=== PATIENT | female | born 1930 | race Caucasian/White ===

== ENCOUNTER 2016-12-22 09:04 | Emergency (ER) | payer MEDICARE ==
[~2016-12-22] VITALS: Ht 157.5 cm; Wt 41.0 kg
[2016-12-22 09:07] VITALS: BP 184/114; PULSE 84; RESP 14; TEMP 97.8; O2SAT 96
[2016-12-22] MEDS ORDERED: MULTTAB67 PO (09:19)
[2016-12-22 09:36] VITALS: O2SAT 97
[2016-12-22] MEDS ORDERED: cloNIDine HCL 0.1 MG TAB PO ONE (09:45)
[2016-12-22] MEDS ORDERED: SODIUM CHLORIDE 0.9% FLUSH 10 ML FLUSH IVF PRN (09:45)
[2016-12-22 10:26] LABS: BACTERIA, URINE RARE /hpf; BILIRUBIN, URINE NEG (NEG); BLOOD, URINE NEG (NEG); GLUCOSE,URINE NEG (NEG); KETONE, URINE NEG (NEG); MUCUS URINE FEW /lpf (OCC); NITRITE,URINE NEG (NEG); PH, URINE 5.5 (5.0-8.5); URINE COLOR LIGHT-YELLOW (YELLW/STRAW); URINE LEUKOCYTE ESTERASE NEG (NEG)
[2016-12-22 10:27] LABS: AUTOMATED NEUTROPHIL # 2.3 TH/MM3 (1.8-7.7); BASOPHIL % 0.5 % (0.0-2.0); EOSINOPHIL # 0.1 TH/MM3 (0-0.4); EOSINOPHIL % 1.6 % (0.0-4.0); HEMATOCRIT 44.9 % (35.0-46.0); HEMOGLOBIN 15.3 GM/DL (11.6-15.3); LYMPH % 35.3 % (9.0-44.0); LYMPHOCYTE # 1.5 TH/MM3 (1.0-4.8); MEAN CELL VOLUME 94.4 FL (80.0-100.0); MEAN CORPUSCULAR HEMOGLOBIN 32.1 PG (27.0-34.0); MEAN PLATELET VOLUME 7.1 FL (7.0-11.0); MONO % 9.3 % (0.0-8.0); MONOCYTE # 0.4 TH/MM3 (0-0.9); NEUT % 53.3 % (16.0-70.0); PLATELET COUNT 323 TH/MM3 (150-450); RED BLOOD COUNT 4.76 MIL/MM3 (4.00-5.30); WHITE BLOOD COUNT 4.3 TH/MM3 (4.0-11.0)
[2016-12-22 10:30] VITALS: BP 216/86; PULSE 70; RESP 16; O2SAT 96
[2016-12-22 10:46] LABS: BICARBONATE 27.6 MEQ/L (21.0-32.0); CALCIUM 10.5 MG/DL (8.5-10.1); CREATININE 0.76 MG/DL (0.50-1.00)
--- NOTE | 2016-12-22 11:21 | PD ---
HPI Chief Complaint: Dizziness Time Seen by Provider: 09:32 Travel History International Travel<30 days: No Contact w/Intl Traveler<30days: No Traveled to known affect area: No History of Present Illness HPI The patient's 85 years old and arrives with complaint of dizziness. She felt somewhat dizzy yesterday afternoon towards the end of the day. It progressively the dizziness is a sensation of weakness with no vertigo type sensation or near syncope-type sensation. She does note treatment for URI with about 3 weeks of URI type symptoms. Symptoms have been improving. Yesterday she applied a washcloth and some eyes to the back of her neck and reported some improvement. She woke up this morning feeling okay however shortly thereafter again developed weakness. No chest pain shortness of breath. No fever or chills. No similar prior episodes. The patient has observed elevated blood pressure is unusual for her as she has no history of it. No new or different medication. PFSH Past Medical History Cardiovascular Problems: Yes (PNEUMONIA / PLEURISY) Tetanus Vaccination: < 5 Years Influenza Vaccination: No ?: Not Past Surgical History Hysterectomy: Yes Social History Alcohol Use: Yes (occasionally) Tobacco Use: No Substance Use: No Allergies-Medications (Allergen,Severity, Reaction): Coded Allergies: Penicillins (Verified Allergy, Intermediate, RASHES, 12/22/16) Reported Meds & Prescriptions Reported Meds & Active Scripts Active Tessalon Perles (Benzonatate) 100 Mg Cap 100 Mg PO TID PRN Hydrochlorothiazide 25 Mg Tab 25 Mg PO DAILY Reported Multiple Vitamin 1 Tab 1 Tab PO DAILY Review of Systems Except as stated in HPI: all other systems reviewed are Neg General / Constitutional: No: Fever HENT: No: Headaches, Vertigo Cardiovascular: No: Chest Pain or Discomfort Respiratory: No: Cough, Shortness of Breath Physical Exam Narrative GENERAL: Well-nourished well-developed 86-year-old female no acute distress SKIN: Focused skin assessment warm/dry. HEAD: Atraumatic. Normocephalic. EYES: Pupils equal and round. No scleral icterus. No injection or drainage. No nystagmus ENT: No nasal bleeding or discharge. Mucous membranes pink and moist. NECK: Trachea midline. No JVD. CARDIOVASCULAR: Regular rate and rhythm. No murmur appreciated. RESPIRATORY: No accessory muscle use. Clear to auscultation. Breath sounds equal bilaterally. GASTROINTESTINAL: Abdomen soft, non-tender, nondistended. Hepatic and splenic margins not palpable. MUSCULOSKELETAL: No obvious deformities. No clubbing. No cyanosis. No edema. NEUROLOGICAL: Awake and alert. No obvious cranial nerve deficits. Motor grossly within normal limits. Normal speech. PSYCHIATRIC: Appropriate mood and affect; insight and judgment normal. Data Data Last Documented VS Vital Signs Date Time Temp Pulse Resp B/P (MAP) Pulse Ox O2 Delivery O2 Flow Rate FiO2 12/22/16 12:03 12/22/16 11:50 66 14 97 12/22/16 09:36 Room Air 12/22/16 09:07 97.8 Orders Orders Electrocardiogram (12/22/16 09:32) Basic Metabolic Panel (Bmp) (12/22/16 09:32) Complete Blood Count With Diff (12/22/16 09:32) Urinalysis - C+S If Indicated (12/22/16 09:32) Ecg Monitoring (12/22/16 09:32) Iv Access Insert/Monitor (12/22/16 09:32) Oximetry (12/22/16 09:32) Sodium Chloride 0.9% Flush (Ns Flush) (12/22/16 09:45) Clonidine (Catapres) (12/22/16 09:45) Ed Discharge Order (12/22/16 11:21) Labs Laboratory Tests Test 12/22/16 09:40 12/22/16 09:45 White Blood Count 4.3 TH/MM3 Red Blood Count 4.76 MIL/MM3 Hemoglobin 15.3 GM/DL Hematocrit 44.9 % Mean Corpuscular Volume 94.4 FL Mean Corpuscular Hemoglobin 32.1 PG Mean Corpuscular Hemoglobin Concent 34.0 % Red Cell Distribution Width 13.0 % Platelet Count 323 TH/MM3 Mean Platelet Volume 7.1 FL Neutrophils (%) (Auto) 53.3 % Lymphocytes (%) (Auto) 35.3 % Monocytes (%) (Auto) 9.3 % Eosinophils (%) (Auto) 1.6 % Basophils (%) (Auto) 0.5 % Neutrophils # (Auto) 2.3 TH/MM3 Lymphocytes # (Auto) 1.5 TH/MM3 Monocytes # (Auto) 0.4 TH/MM3 Eosinophils # (Auto) 0.1 TH/MM3 Basophils # (Auto) 0.0 TH/MM3 CBC Comment DIFF FINAL Differential Comment Blood Urea Nitrogen 10 MG/DL Creatinine 0.76 MG/DL Random Glucose 124 MG/DL Calcium Level 10.5 MG/DL Sodium Level 133 MEQ/L Potassium Level 3.6 MEQ/L Chloride Level 97 MEQ/L Carbon Dioxide Level 27.6 MEQ/L Anion Gap 8 MEQ/L Estimat Glomerular Filtration Rate 72 ML/MIN Urine Color LIGHT-YELLOW Urine Turbidity CLEAR Urine pH 5.5 Urine Specific [place] 1.005 Urine Protein NEG mg/dL Urine Glucose (UA) NEG mg/dL Urine Ketones NEG mg/dL Urine Occult Blood NEG Urine Nitrite NEG Urine Bilirubin NEG Urine Urobilinogen LESS THAN 2.0 MG/DL Urine Leukocyte Esterase NEG Urine RBC LESS THAN 1 /hpf Urine WBC LESS THAN 1 /hpf Urine Bacteria RARE /hpf Urine Mucus FEW /lpf Microscopic Urinalysis Comment CULT NOT INDICATED MDM Medical Decision Making Medical Screen Exam Complete: Yes Emergency Medical Condition: Yes Medical Record Reviewed: No Differential Diagnosis Vertigo, lightheadedness, syncope, anemia, UTI, polypharmacy, renal injury/chest /dehydration, anxiety Narrative Course CBC & BMP Diagram 12/22/16 09:40 Calcium Level 10.5 H Urinalysis shows no UTI EKG: sinus, rate 78, RBBB w LVH The patient is resting comfortably and feels better, is alert and in no distress. The patients results and examination findings were discussed. The repeat examination is unremarkable and benign. The history, exam, diagnostic testing, and current condition do not suggest any significant pathology to warrant further testing, continued ED treatment, admission, or surgical evaluation at this point. The vital signs have been stable. The patient does not have uncontrollable pain, intractable vomiting, or other significant symptoms. The patient's condition is stable and appropriate for discharge. The patient will pursue further outpatient evaluation with a primary care physician or other designated or consulting physician as indicated in the discharge instructions. The patient expressed understanding and was agreeable with this plan. Diagnosis Primary Impression: Dizziness Additional Impression: Hypertension Qualified Codes: I10 - Essential (primary) hypertension Referrals: Primary Care Physician 2 days Additional Instructions: You have a choice when it comes to health care, and we are glad that you chose [facility]. Hopefully, we have met your expectations on today's visit. You are welcome to return to [facility] at any time, as we are committed to meeting the health care needs of our community. Med/Other Pt SpecificInfo: No Change to Meds Scripts Benzonatate (Tessalon Perles) 100 Mg Cap 100 MG PO TID Y for COUGH, #10 CAP 0 Refills Prov: Franklin Werner MD 12/22/16 Hydrochlorothiazide (Hydrochlorothiazide) 25 Mg Tab 25 MG PO DAILY, #30 TAB 0 Refills Prov: Franklin Werner MD 12/22/16 Disposition: 01 DISCHARGE HOME Condition: Stable Franklin Werner MD Dec 22, 2016 11:21
[2016-12-22] MEDS ORDERED: HYDR25TA5 PO (11:31)
[2016-12-22] MEDS ORDERED: BENZ100 PO (11:31)
[2016-12-22 11:50] VITALS: BP 151/68; PULSE 66; RESP 14; O2SAT 97
--- NOTE | 2016-12-22 17:58 | EKG ---
Date Performed: 12/22/2016 Time Performed: 09:42:01 PTAGE: 86 years EKG: Sinus rhythm WITH OCCASIONAL ECTOPIC PREMATURE COMPLEXES RIGHT BUNDLE BRANCH BLOCK LEFT VENTRICULAR HYPERTROPHY A ND ST-T CHANGE ABNORMAL ECG NO PREVIOUS TRACING DOCTOR: Kumar Melgoza Interpretating Date/Time 12/22/2016 17:58:03
== END 2016-12-22 12:08 | disposition home or self-care (01) ==
LOC: NEPC 09:04
DX: R42 Dizziness and giddiness (principal); I10 Essential (primary) hypertension
CPT/HCPCS: 80048; 81001; 85025; 93005; 99284

== ENCOUNTER 2017-01-26 16:12 | Emergency (ER) | payer MEDICARE ==
[~2017-01-26] VITALS: Ht 157.5 cm; Wt 38.0 kg
[~2017-01-26 16:12] MED LIST: BENZ100 PO; CETI10 PO; FLUT1SPR5 EACH NARE; LISI10TA PO; MULTTAB67 PO
[2017-01-26 16:16] VITALS: BP 218/94; PULSE 84; RESP 16; TEMP 98.5; O2SAT 98
--- NOTE | 2017-01-26 17:10 | RADRPT ---
EXAM DATE/TIME: 01/26/2017 16:49 [facility] COMPARISON: No previous studies available for comparison. INDICATIONS : Hypertension, chest pain for 2 months. MEDICAL HISTORY : Hypertension. SURGICAL HISTORY : None. ENCOUNTER: Initial ACUITY: 2 months PAIN SCORE: 0/10 LOCATION: Bilateral chest FINDINGS: Marked hyperinflation without infiltrate. Moderate peribronchial thickening. The cardiomediastinal contours are unremarkable. Osseous structures are intact. CONCLUSION: Marked hyperinflation with mild peribronchial thickening Jacob Mcmahon MD FACR on January 26, 2017 at 17:08 Board Certified Radiologist. This report was verified electronically.
[2017-01-26 17:37] LABS: AUTOMATED NEUTROPHIL # 8.1 TH/MM3 (1.8-7.7); BASOPHIL % 0.1 % (0.0-2.0); EOSINOPHIL % 0.1 % (0.0-4.0); HEMATOCRIT 40.1 % (35.0-46.0); HEMO FLAGS DIFF FINAL; LYMPH % 10.1 % (9.0-44.0); MEAN CELL VOLUME 94.7 FL (80.0-100.0); MEAN CORPUSCULAR HEMOGLOBIN 33.3 PG (27.0-34.0); MEAN CORPUSCULAR HGB CONC 35.2 % (32.0-36.0); MONO % 5.8 % (0.0-8.0); NEUT % 83.9 % (16.0-70.0); PLATELET COUNT 322 TH/MM3 (150-450); RED BLOOD COUNT 4.24 MIL/MM3 (4.00-5.30); RED CELL DISTRIBUTION WIDTH 12.2 % (11.6-17.2); WHITE BLOOD COUNT 9.7 TH/MM3 (4.0-11.0)
[2017-01-26 17:45] LABS: APTT (PATIENT) 29.6 SEC (24.3-30.1); INTERNATIONAL NORMALIZED RATIO 0.9 RATIO
[2017-01-26 17:55] VITALS: BP 209/92; PULSE 88; RESP 20; O2SAT 97
[2017-01-26 18:00] LABS: ANION GAP 7 MEQ/L (5-15); BICARBONATE 26.6 MEQ/L (21.0-32.0); BLOOD UREA NITROGEN 8 MG/DL (7-18); CHLORIDE 93 MEQ/L (98-107); GLOMERULAR FILTRATION RATE 77 ML/MIN (>89); POTASSIUM 4.4 MEQ/L (3.5-5.1); SODIUM (NA) 127 MEQ/L (136-145)
[2017-01-26] MEDS ORDERED: LISINOPRIL 20 MG TAB PO ONE (18:00)
--- NOTE | 2017-01-26 18:02 | PD ---
HPI Chief Complaint: General Weakness Time Seen by Provider: 17:53 Travel History International Travel<30 days: No Contact w/Intl Traveler<30days: No Traveled to known affect area: No History of Present Illness HPI 86-year-old female patient with history of hypertension, presents to the ER today because she states that over last few weeks she has been feeling woozy, feeling off balance at times, and her blood pressures up and elevated. She denies any chest pains, trouble breathing, numbness or weakness. She states that she has been on lisinopril given to her by primary care doctor for 3 weeks. In addition, she states that she has lost sinus congestion and has been coughing and coughing up thick phlegm. However, she denies any fevers, vomiting , or other symptoms. Modifying Factors: None Associated Signs & Symptoms: Dizziness, elevated blood pressures, coughing Risk Factors: History of hypertension PFSH Past Medical History Cardiovascular Problems: Yes (HTN) Hypertension: Yes ?: Not Past Surgical History Eye Surgery: Yes (glaucoma) Hysterectomy: Yes Social History Alcohol Use: Yes (occasionally) Tobacco Use: No Substance Use: No Allergies-Medications (Allergen,Severity, Reaction): Coded Allergies: Penicillins (Verified Allergy, Intermediate, RASHES, 01/26/17) Reported Meds & Prescriptions Reported Meds & Active Scripts Active Flonase Nasal [place] (Fluticasone Nasal [place]) 50 Mcg/Act [place] 2 [place] EACH NARE BID Cetirizine (Cetirizine HCl) 10 Mg Tab 10 Mg PO HS Lisinopril-Hctz 10-12.5 Mg Tab 1 Tab PO DAILY Tessalon Perles (Benzonatate) 100 Mg Cap 100 Mg PO TID PRN Reported Multiple Vitamin 1 Tab 1 Tab PO DAILY Review of Systems Except as stated in HPI: all other systems reviewed are Neg Physical Exam Narrative GENERAL: Well-developed elderly white female patient currently in mild distress but awake and oriented 3. SKIN: Focused skin assessment warm/dry. HEAD: Atraumatic. Normocephalic. EYES: Pupils equal and round. No scleral icterus. No injection or drainage. ENT: No nasal bleeding or discharge. Mucous membranes pink and moist. NECK: Trachea midline. No JVD. CARDIOVASCULAR: Regular rate and rhythm. No murmur appreciated. RESPIRATORY: No accessory muscle use. Clear to auscultation. Breath sounds equal bilaterally. GASTROINTESTINAL: Abdomen soft, non-tender, nondistended. Hepatic and splenic margins not palpable. MUSCULOSKELETAL: No obvious deformities. No clubbing. No cyanosis. No edema. NEUROLOGICAL: Awake and alert. No obvious cranial nerve deficits. Motor grossly within normal limits. Normal speech. PSYCHIATRIC: Appropriate mood and affect; insight and judgment normal. Data Data Last Documented VS Vital Signs Date Time Temp Pulse Resp B/P (MAP) Pulse Ox O2 Delivery O2 Flow Rate FiO2 01/26/17 17:55 88 20 209/92 (131) 97 Room Air 01/26/17 16:16 98.5 Orders Orders Electrocardiogram (01/26/17 16:37) Basic Metabolic Panel (Bmp) (01/26/17 16:37) Ckmb (Isoenzyme) Profile (01/26/17 16:37) Complete Blood Count With Diff (01/26/17 16:37) Magnesium (Mg) (01/26/17 16:37) Prothrombin Time / Inr (Pt) (01/26/17 16:37) Act Partial Throm Time (Ptt) (01/26/17 16:37) Troponin I (01/26/17 16:37) Chest, Pa & Lat (01/26/17 16:37) Lisinopril (Prinivil) (01/26/17 18:00) Urinalysis - C+S If Indicated (01/26/17 18:02) Ct Brain W/O Iv Contrast(Rout) (01/26/17 18:02) Labs Laboratory Tests Test 01/26/17 16:42 01/26/17 18:00 White Blood Count 9.7 TH/MM3 Red Blood Count 4.24 MIL/MM3 Hemoglobin 14.1 GM/DL Hematocrit 40.1 % Mean Corpuscular Volume 94.7 FL Mean Corpuscular Hemoglobin 33.3 PG Mean Corpuscular Hemoglobin Concent 35.2 % Red Cell Distribution Width 12.2 % Platelet Count 322 TH/MM3 Mean Platelet Volume 7.3 FL Neutrophils (%) (Auto) 83.9 % Lymphocytes (%) (Auto) 10.1 % Monocytes (%) (Auto) 5.8 % Eosinophils (%) (Auto) 0.1 % Basophils (%) (Auto) 0.1 % Neutrophils # (Auto) 8.1 TH/MM3 Lymphocytes # (Auto) 1.0 TH/MM3 Monocytes # (Auto) 0.6 TH/MM3 Eosinophils # (Auto) 0.0 TH/MM3 Basophils # (Auto) 0.0 TH/MM3 CBC Comment DIFF FINAL Differential Comment Prothrombin Time 10.0 SEC Prothromb Time International Ratio 0.9 RATIO Activated Partial Thromboplast Time 29.6 SEC Blood Urea Nitrogen 8 MG/DL Creatinine 0.72 MG/DL Random Glucose 114 MG/DL Calcium Level 10.3 MG/DL Magnesium Level 2.0 MG/DL Sodium Level 127 MEQ/L Potassium Level 4.4 MEQ/L Chloride Level 93 MEQ/L Carbon Dioxide Level 26.6 MEQ/L Anion Gap 7 MEQ/L Estimat Glomerular Filtration Rate 77 ML/MIN Total Creatine Kinase 95 U/L Troponin I LESS THAN 0.02 NG/ML Urine Color LIGHT-YELLOW Urine Turbidity CLEAR Urine pH 5.5 Urine Specific [place] 1.003 Urine Protein NEG mg/dL Urine Glucose (UA) NEG mg/dL Urine Ketones TRACE mg/dL Urine Occult Blood NEG Urine Nitrite NEG Urine Bilirubin NEG Urine Urobilinogen LESS THAN 2.0 MG/DL Urine Leukocyte Esterase NEG Urine RBC LESS THAN 1 /hpf Microscopic Urinalysis Comment CULT NOT INDICATED MDM Medical Decision Making Medical Screen Exam Complete: Yes Emergency Medical Condition: Yes Medical Record Reviewed: Yes Interpretation(s) EKG shows normal sinus rhythm at a rate of 80 bpm with LVH. No signs of acute ST-T changes. Laboratory Tests Test 01/26/17 16:42 01/26/17 18:00 Neutrophils (%) (Auto) 83.9 % (16.0-70.0) Neutrophils # (Auto) 8.1 TH/MM3 (1.8-7.7) Random Glucose 114 MG/DL (74-106) Calcium Level 10.3 MG/DL (8.5-10.1) Sodium Level 127 MEQ/L (136-145) Chloride Level 93 MEQ/L (98-107) Estimat Glomerular Filtration Rate 77 ML/MIN (>89) Troponin I LESS THAN 0.02 NG/ML Urine Ketones TRACE mg/dL (NEG) Differential Diagnosis Dizziness, coughing, sinus discomfort: Sinusitis versus dehydration versus metabolic issues versus pneumonia versus bronchitis versus TIA versus acute intracranial processes Narrative Course Lab work shows significant hyponatremia. Patient has no focal neurological deficits. She had fairly elevated blood pressures. Lisinopril was given in the ER. CAT scan was ordered for further evaluation of dizziness for acute intracranial processes. Physician Communication Physician Communication Case is signed out to Dr. Gonzalez at 7 PM pending CAT scan. Diagnosis Primary Impression: Hypertensive urgency Additional Impressions: Hyponatremia Dizziness Condition: Stable Peggy Avila MD Jan 26, 2017 18:02
[2017-01-26 18:06] LABS: CREATINE KINASE 95 U/L (26-192)
[2017-01-26 18:49] LABS: BLOOD, URINE NEG (NEG); COMMENT (UR) CULT NOT INDICATED; CULTURE IF INDICATED CULT NOT INDICATED; GLUCOSE,URINE NEG (NEG); KETONE, URINE TRACE mg/dL (NEG); NITRITE,URINE NEG (NEG); PH, URINE 5.5 (5.0-8.5); URINE COLOR LIGHT-YELLOW (YELLW/STRAW)
[2017-01-26 19:39] VITALS: BP 219/98; PULSE 84; RESP 16; O2SAT 95
--- NOTE | 2017-01-26 20:04 | RADRPT ---
EXAM DATE/TIME: 01/26/2017 18:45 [facility] COMPARISON: No previous studies available for comparison. INDICATIONS : Dizziness. RADIATION DOSE: 56.35 CTDIvol (mGy) MEDICAL HISTORY : Hypertension. SURGICAL HISTORY : None. ENCOUNTER: Initial ACUITY: 1 day PAIN SCALE: 0/10 LOCATION: cranial TECHNIQUE: Multiple contiguous axial images were obtained of the head. Using automated exposure control and adj ustment of the mA and/or kV according to patient size, radiation dose was kept as low as reasonably a chievable to obtain optimal diagnostic quality images. DICOM format image data is available electro nically for review and comparison. FINDINGS: CEREBRUM: The ventricles are normal for age. No evidence of midline shift, mass lesion, hemorrhage or acute in farction. No extra-axial fluid collections are seen. POSTERIOR FOSSA: The cerebellum and brainstem are intact. The 4th ventricle is midline. The cerebellopontine angle i s unremarkable. EXTRACRANIAL: The visualized portion of the orbits is intact. SKULL: The calvaria is intact. No evidence of skull fracture. CONCLUSION: Negative exam Noé Constantino MD on January 26, 2017 at 20:01 Board Certified Radiologist. This report was verified electronically.
--- NOTE | 2017-01-26 20:05 | PD ---
Physical Exam Narrative Patient was seen by ED physician and signed out to me. Data Data Last Documented VS Vital Signs Date Time Temp Pulse Resp B/P (MAP) Pulse Ox O2 Delivery O2 Flow Rate FiO2 01/26/17 19:39 84 16 219/98 (138) 95 Room Air 01/26/17 16:16 98.5 Orders Orders Electrocardiogram (01/26/17 16:37) Basic Metabolic Panel (Bmp) (01/26/17 16:37) Ckmb (Isoenzyme) Profile (01/26/17 16:37) Complete Blood Count With Diff (01/26/17 16:37) Magnesium (Mg) (01/26/17 16:37) Prothrombin Time / Inr (Pt) (01/26/17 16:37) Act Partial Throm Time (Ptt) (01/26/17 16:37) Troponin I (01/26/17 16:37) Chest, Pa & Lat (01/26/17 16:37) Lisinopril (Prinivil) (01/26/17 18:00) Urinalysis - C+S If Indicated (01/26/17 18:02) Ct Brain W/O Iv Contrast(Rout) (01/26/17 18:02) Sodium Chlorid 0.9% 500 Ml Inj (Ns 500 M (01/26/17 20:15) Labs Laboratory Tests Test 01/26/17 16:42 01/26/17 18:00 White Blood Count 9.7 TH/MM3 Red Blood Count 4.24 MIL/MM3 Hemoglobin 14.1 GM/DL Hematocrit 40.1 % Mean Corpuscular Volume 94.7 FL Mean Corpuscular Hemoglobin 33.3 PG Mean Corpuscular Hemoglobin Concent 35.2 % Red Cell Distribution Width 12.2 % Platelet Count 322 TH/MM3 Mean Platelet Volume 7.3 FL Neutrophils (%) (Auto) 83.9 % Lymphocytes (%) (Auto) 10.1 % Monocytes (%) (Auto) 5.8 % Eosinophils (%) (Auto) 0.1 % Basophils (%) (Auto) 0.1 % Neutrophils # (Auto) 8.1 TH/MM3 Lymphocytes # (Auto) 1.0 TH/MM3 Monocytes # (Auto) 0.6 TH/MM3 Eosinophils # (Auto) 0.0 TH/MM3 Basophils # (Auto) 0.0 TH/MM3 CBC Comment DIFF FINAL Differential Comment Prothrombin Time 10.0 SEC Prothromb Time International Ratio 0.9 RATIO Activated Partial Thromboplast Time 29.6 SEC Blood Urea Nitrogen 8 MG/DL Creatinine 0.72 MG/DL Random Glucose 114 MG/DL Calcium Level 10.3 MG/DL Magnesium Level 2.0 MG/DL Sodium Level 127 MEQ/L Potassium Level 4.4 MEQ/L Chloride Level 93 MEQ/L Carbon Dioxide Level 26.6 MEQ/L Anion Gap 7 MEQ/L Estimat Glomerular Filtration Rate 77 ML/MIN Total Creatine Kinase 95 U/L Troponin I LESS THAN 0.02 NG/ML Urine Color LIGHT-YELLOW Urine Turbidity CLEAR Urine pH 5.5 Urine Specific [place] 1.003 Urine Protein NEG mg/dL Urine Glucose (UA) NEG mg/dL Urine Ketones TRACE mg/dL Urine Occult Blood NEG Urine Nitrite NEG Urine Bilirubin NEG Urine Urobilinogen LESS THAN 2.0 MG/DL Urine Leukocyte Esterase NEG Urine RBC LESS THAN 1 /hpf Microscopic Urinalysis Comment CULT NOT INDICATED MDM Supervised Visit with GIO: No Interpretation(s) 1955 PM. EKG shows sinus rhythm with incomplete right bundle-branch block. Chest x-ray show mild peribronchial thickening. CBC within normal limit. Sodium 127. Chloride 93. GFR 77. Cardiac enzymes are normal. UA is negative. Narrative Course Patient was seen by ED physician and given Prinivil 20 mg by mouth. Normal saline solution 500 cc IV bolus. Patient is on culmination of lisinopril and HCTZ 12/11.. I will increase lisinopril to 20 mg daily. Advised patient to increase salt in the diet. Advised patient to follow-up with local physician for blood pressure check and sodium checked several days. Diagnosis Primary Impression: Hypertensive urgency Additional Impressions: Dizziness Hyponatremia Bronchitis Patient Instructions: General Instructions Additional Instruction: Increase lisinopril to 20 mg daily. Continue with all medications. Z-Benitez as directed. Follow-up with personal physician for blood pressure check and sodium checked in several days. Return if worse. Med/Other Pt SpecificInfo: Prescription(s) given Scripts Azithromycin (Zithromax Z-Benitez) 250 Mg Dspk 250 MG PO DIRECTED for Infection, #1 DSPK 0 Refills 500 MG (2 tabs) day 1, then 1 tab days 2-5. Prov: Tai Gonzalez MD 01/26/17 Lisinopril (Lisinopril) 10 Mg Tab 10 MG PO DAILY, #30 TAB 0 Refills Prov: Tai Gonzalez MD 01/26/17 Disposition: 01 DISCHARGE HOME Condition: Stable Tai Gonzalez MD Jan 26, 2017 20:05
[2017-01-26] MEDS ORDERED: LISI10TA3 PO (20:12)
[2017-01-26] MEDS ORDERED: ZITHTAB PO (20:12)
[2017-01-26] MEDS ORDERED: SODIUM CHLORID 0.9% 500 ML INJ 500 ML IV ONE (20:15)
[2017-01-26 20:19] VITALS: BP 180/86; PULSE 82; RESP 20; O2SAT 96
[2017-01-26 20:47] VITALS: BP 196/88
--- NOTE | 2017-01-27 17:53 | EKG ---
Date Performed: 01/26/2017 Time Performed: 18:08:14 PTAGE: 86 years EKG: Sinus rhythm INCOMPLETE RIGHT BUNDLE BRANCH BLOCK VOLTAGE CRITERIA FOR LVH MODERATE ST DEPRESSION Since previous tracing, no significant change noted ABNORMAL ECG PREVIOUS TRACING : 12/22/2016 09.42 DOCTOR: Stephanie Caballero Interpretating Date/Time 01/27/2017 17:52:42
[2017-02-05] MEDS ORDERED: AMLO5TAB2 PO (17:00)
[2017-02-05] MEDS ORDERED: LISI-515 PO (17:00)
== END 2017-01-26 21:09 | disposition home or self-care (01) ==
LOC: NEPC 16:12
DX: R42 Dizziness and giddiness (principal); E87.1 Hypo-osmolality and hyponatremia; J40 Bronchitis, not specified as acute or chronic; I10 Essential (primary) hypertension; I45.10 Unspecified right bundle-branch block; R94.31 Abnormal electrocardiogram [ECG] [EKG]; Z79.899 Other long term (current) drug therapy
CPT/HCPCS: 70450; 71020; 80048; 81001; 82550; 83735; 84484; 85025; 85610; 85730; 93005; 96360; 99285; J7040